=== PATIENT | female | born 1955 | race Caucasian/White ===

== ENCOUNTER 2017-05-31 08:18 | Outpatient (CLI) | payer OTHER ==
--- NOTE | 2017-06-08 10:11 | Mammography Report ---
DIGITAL SCREENING MAMMOGRAM: 05/31/2017 CLINICAL INDICATION: A 62-year-old, for screening. COMPARISON: The patient reports having had previous mammograms at an outside facility, but films are not yet available for comparison. If films become available, an addendum will be issued. TECHNIQUE: Routine CC and MLO projections were obtained of the breasts. FINDINGS: The breasts demonstrate scattered fibroglandular densities bilaterally. Coarse and punctat e, typically benign calcifications are present. Intramammary lymph nodes are present bilaterally. No suspicious masses, clustered microcalcifications, or regions of architectural distortion are identifi ed. IMPRESSION: BENIGN FINDINGS. RECOMMENDATION: ROUTINE ANNUAL SCREENING UNLESS OTHERWISE CLINICALLY INDICATED. BIRADS CATEGORY 2-BENIGN FINDINGS. STANDARD QUALIFYING STATEMENTS 1. This examination was reviewed with the aid of Computer-Aided Detection (CAD). 2. A negative or benign imaging report should not delay biopsy if clinically suspicious findings are present. Consider surgical consultation if warranted. More than 5% of cancers are not identified by i maging. 3. Dense breasts may obscure an underlying neoplasm. JOB #: [id number] EXT JOB #:[id number]
== END 2017-05-31 08:19 | disposition home or self-care (01) ==
LOC: DI 08:18
PROVIDERS: ATTEND Physician Assistant
DX: Z12.31 Encounter for screening mammogram for malignant neoplasm of breast (principal)
CPT/HCPCS: 77067

== ENCOUNTER 2017-11-06 09:10 | Outpatient (CLI) | payer OTHER | END 2017-11-06 09:11 | disposition home or self-care (01) | LOC: SC 09:10 | PROVIDERS: ATTEND Internal Medicine Pulmonary Disease | DX: G47.33 Obstructive sleep apnea (adult) (pediatric) (principal) | CPT/HCPCS: 99203; 99212 ==

== ENCOUNTER 2018-01-11 21:01 | Outpatient (CLI) | payer OTHER | END 2018-01-11 21:02 | disposition home or self-care (01) | LOC: SC 21:01 | PROVIDERS: ATTEND Internal Medicine Pulmonary Disease | DX: G47.61 Periodic limb movement disorder (principal) | CPT/HCPCS: 95810 ==

== ENCOUNTER 2018-02-08 09:12 | Outpatient (CLI) | payer OTHER | END 2018-02-08 09:13 | disposition home or self-care (01) | LOC: SC 09:12 | PROVIDERS: ATTEND Nurse Practitioner Family | DX: R06.83 Snoring (principal); G47.61 Periodic limb movement disorder | CPT/HCPCS: 99214 ==

== ENCOUNTER 2019-02-28 09:08 | Day surgery (SDC) | payer MEDICARE, OTHER ==
[~2019-02-28 09:08] MED LIST: CYCLOPENTOLATE 1% OPHTH DROPS 2 ML ONE; KETOROLAC 0.45% OPHTH DROPS ONE; PHENYLEPHRINE 2.5% OPHTH 2 ML DROPS ONE; PROPARACAINE 0.5% OPHTH DROPS 15 ML ONE
[2019-02-28] MEDS ORDERED: LACTATED RINGERS 500 ML IV ONE (09:27)
[2019-02-28] MEDS ORDERED: PROPARACAINE 0.5% OPHTH DROPS 15 ML RIGHTEYE ONE ×2 (09:36→10:17)
[2019-02-28] MEDS ORDERED: PHENYLEPHRINE 2.5% OPHTH 2 ML DROPS RIGHTEYE ONE (09:36)
[2019-02-28] MEDS ORDERED: CYCLOPENTOLATE 1% OPHTH DROPS 2 ML RIGHTEYE ONE (09:36)
[2019-02-28] MEDS ORDERED: KETOROLAC 0.45% OPHTH DROPS RIGHTEYE ONE (09:36)
--- NOTE | 2019-02-28 09:42 | ANESTHESIA ---
Pre-Anesthesia VS, & Labs - Diagnosis R senile combined cataract - Procedure R extraction cataract with IOL Vital Signs: Last Vital Signs Temp 36.9 C 02/28/19 09:28 Pulse 76 02/28/19 09:28 Resp 16 02/28/19 09:28 BP 151/90 H 02/28/19 09:28 Pulse Ox 97 02/28/19 09:28 - NPO >8 hours - Is Patient ?: No Home Medications and Allergies Home Medications: Ambulatory Orders Cholecalciferol (Vitamin D3) [Vitamin D3] 1,000 unit PO 02/27/19 Glucosamine HCl 1,500 mg PO 02/27/19 Metoprolol Succinate 50 mg PO 02/27/19 Omeprazole 20 mg PO 02/27/19 Simvastatin 20 mg PO 02/27/19 Ubidecarenone [Co Q-10] 10 mg PO 02/27/19 Cholecalciferol (Vitamin D3) [Vitamin D3] 1,000 unit PO 02/27/19 Glucosamine HCl 1,500 mg PO 02/27/19 Metoprolol Succinate 50 mg PO 02/27/19 Omeprazole 20 mg PO 02/27/19 Simvastatin 20 mg PO 02/27/19 Ubidecarenone [Co Q-10] 10 mg PO 02/27/19 Allergies/Adverse Reactions: Allergies Allergy/AdvReac Type Severity Reaction Status Date / Time No Known Drug Allergies Allergy Verified 02/27/19 14:24 Anes History & Medical History - Anesthetic History Anesthesia Complications: reports: No previous complications Family history of Anesthesia Complications: Denies Family history of Malignant Hyperthermia: Denies - Medical History Cardiovascular: reports: Hypertension, High cholesterol Pulmonary: reports: None Gastrointestinal: reports: GERD Urinary: reports: None Musculoskeletal: reports: None Endocrine/Autoimmune: reports: None Skin: reports: None Exam General: Alert, Oriented x3, Cooperative Dental: WNL Mouth Openin Fingerbreadth Neck Mobility: Normal Mallampati classification: II Thyromental Distance: 4-6 cm Respiratory: Lungs clear Cardiovascular: Regular rate Neurological: Normal speech Mental/Cognitive Status: Alert/Oriented X3, Normal for patient Cognitive Status: Within normal limits Plan Anesthesia Type: MAC Consent for Procedure(s) Verified and Reviewed: Yes Code Status: Attempt Resuscitation ASA classification: 2-Mild systemic disease Is this case an emergency?: No
[2019-02-28] MEDS ORDERED: BRIMONIDINE 0.2% OPHTH DROPS 5 ML OPTH ONE (10:16)
[2019-02-28] MEDS ORDERED: EPINEPHrine 1 MG/ML AMP IVP ONE (10:16)
[2019-02-28] MEDS ORDERED: TIMOLOL 0.5% OPHTH DROPS OPTH ONE (10:17)
[2019-02-28] MEDS ORDERED: CHONDR SULF/HYALURONATE SYRINGE IO ONE (10:17)
[2019-02-28] MEDS ORDERED: BSS/LIDOCAINE/EPINEPHRINE 1 ML SYRINGE IO ONE (10:17)
[2019-02-28] MEDS ORDERED: TRIAMCIN/MOXIFLOX OPHTHALMIC 0.6 ML VIAL IO ONE (10:18)
[2019-02-28] MEDS ORDERED: VANCOMYCIN OPHTHALMI 8MG/0.8ML 8 MG/0.8 ML SYRINGE IO ONE (10:18)
[2019-02-28 10:48] VITALS: BP 118/68
--- NOTE | 2019-02-28 11:34 | OPERATIVE REPORT ---
DATE OF SERVICE: 02/28/2019 Physician: Alonzo Ugalde MD PREOPERATIVE DIAGNOSIS: Visually significant cataract, right eye. This is her first cataract surger y. She also underwent a vitrectomy and retinal detachment repair earlier this year. POSTOPERATIVE DIAGNOSIS: Visually significant cataract, right eye. This is her first cataract surge ry. She also underwent a vitrectomy and retinal detachment repair earlier this year. PROCEDURE: Phacoemulsification with posterior chamber intraocular lens implant, right eye. SURGEON: Alonzo Ugalde MD ANESTHESIA: Monitored anesthesia care. COMPLICATIONS: None. OPERATIVE INDICATIONS: This is a 64-year-old woman with progressive vision loss in the right eye due to 4+ nuclear sclerotic and 1+ posterior subcapsular cataract. Best corrected visual acuity was 20/ 150, glaring to 20/400 in the right eye. Indications for surgery were overall decrease in vision, di fficulty seeing words on the computer screen, difficulty reading, difficulty seeing words, closed cap tion or game scores on TV, difficulty seeing street signs, difficulty driving in low light or at nigh t, difficulty driving at night because headlights from other vehicles, and difficulty with glare or b right lights in any situation. She was consented at length concerning risks and benefits of cataract surgery, after which she expressed a desire to proceed with surgery. OPERATIVE PROCEDURE: The patient was taken into OR #3 and placed under monitored anesthesia care. A surgical timeout was conducted confirming the correct patient, correct procedure, and correct surgic al site. She was given topical anesthesia, and prepped and draped in the usual sterile fashion. The eye was entered at the 12 and 9 o'clock positions. Intracameral Shugarcaine was injected into the a nterior chamber, followed by Viscoat. A continuous-tear curvilinear capsulorrhexis was performed. T he nucleus was hydrodissected and phacoemulsified. The cortex was evacuated using automated infusion and aspiration. Provisc was injected into the capsular bag, and a 17.0 diopter intraocular lens ins erted in the bag. Approximately 0.8 mL of a mixture of triamcinolone, moxifloxacin, and vancomycin w as injected subconjunctivally in the superior quadrant for infection and inflammation prophylaxis. I and A was used to evacuate the viscoelastic materials. The eye was inflated to physiologic pressure using balanced salt solution and found to be watertight. The patient was taken from the operating r oom in good condition and given postoperative instructions. TD: 02/28/2019 10:38
== END 2019-02-28 09:09 | disposition home or self-care (01) ==
LOC: SDS 09:08
PROVIDERS: ATTEND Ophthalmology
PROC: 08RJ3JZ Replacement of Right Lens with Synthetic Substitute, Percutaneous Approach (ICD-10-PCS; principal; 2019-02-28 08:30)
DX: H25.811 Combined forms of age-related cataract, right eye (principal); H35.81 Retinal edema; I10 Essential (primary) hypertension; G47.30 Sleep apnea, unspecified; E78.00 Pure hypercholesterolemia, unspecified; K21.9 Gastro-esophageal reflux disease without esophagitis; M19.90 Unspecified osteoarthritis, unspecified site; Z86.69 Personal history of other diseases of the nervous system and sense organs; Z87.891 Personal history of nicotine dependence
CPT/HCPCS: 66984; A9270; J3490; V2632

== ENCOUNTER 2019-04-22 11:27 | Outpatient (CLI) | payer MEDICARE, OTHER ==
--- NOTE | 2019-04-22 15:18 | XRAY Report ---
Reason: PAIN IN LEFT HIP Procedure Date: 04/22/2019 Accession Number: [id number] / [id number] Procedure: XR - Hip w/Pelvis 2-3V LT CPT Code: FULL RESULT: EXAM: LEFT HIP RADIOGRAPHY EXAM DATE: 04/22/2019 11:40 AM. CLINICAL HISTORY: Left hip pain. COMPARISON: None. TECHNIQUE: 2 views. FINDINGS: Bones: No acute fracture evident. A small sclerotic bone lesion overlies the inferior right ilium measuring 10 mm. The inferior portion of posterior spinal fusion hardware overlies the L5 level. Joints: No hip joint space loss or malalignment. Tiny periarticular osteophytes present about both hips. The sacroiliac joints and pubic symphysis are normal. Soft Tissues: Normal. No soft tissue swelling. IMPRESSION: 1. Mild bilateral hip osteoarthritis without joint space loss. 2. 10 mm sclerotic right ilial bone lesion, statistically likely a bone island. RADIA
== END 2019-04-22 11:28 | disposition home or self-care (01) ==
LOC: DI 11:27
PROVIDERS: ATTEND Physician Assistant
DX: M16.0 Bilateral primary osteoarthritis of hip (principal)

== ENCOUNTER 2019-04-22 22:45 | Outpatient (CLI) | payer MEDICARE, OTHER | END 2019-04-22 22:46 | disposition critical access hospital (66) | LOC: EMS 22:45 | PROVIDERS: ATTEND Surgery | DX: M54.5 Low back pain (principal); M25.552 Pain in left hip; R41.82 Altered mental status, unspecified; S09.90XA Unspecified injury of head, initial encounter; W10.8XXA Fall (on) (from) other stairs and steps, initial encounter; Y92.008 Other place in unspecified non-institutional (private) residence as the place of occurrence of the external cause | CPT/HCPCS: A0425; A0427 ==

== ENCOUNTER 2019-04-22 23:00 | Emergency (ER) | payer MEDICARE, OTHER ==
--- NOTE | 2019-04-23 00:07 | XRAY Report ---
Reason: fall, back injury, aloc Procedure Date: 04/22/2019 Accession Number: [id number] / [id number] Procedure: XR - Lumbar Spine 2 View CPT Code: FULL RESULT: EXAM: LUMBOSACRAL SPINE RADIOGRAPHY EXAM DATE: 04/22/2019 11:51 PM. CLINICAL HISTORY: Fall, back injury, aloc. COMPARISONS: None. TECHNIQUE: 3 views. FINDINGS: Alignment: Within normal limits. No spondylolisthesis or scoliosis. Bones: L4-L5 spinal fusion hardware. No hardware breaks or loosening. No acute displaced fractures. Disks: Mild to moderate multilevel degenerative disk disease. Facets: There are lower lumbar facet degenerative changes. Sacroiliac Joints: Unremarkable. Soft Tissues: The visualized bowel gas pattern is unremarkable. Atherosclerotic calcification of the aorta. IMPRESSION: No radiographic evidence for acute disease. RADIA
--- NOTE | 2019-04-23 00:13 | CT Report ---
Reason: fall, head injury, aloc Procedure Date: 04/22/2019 Accession Number: [id number] / [id number] Procedure: CT - HEAD WO CPT Code: FULL RESULT: EXAM: CT HEAD EXAM DATE: 04/22/2019 11:33 PM. CLINICAL HISTORY: Fall, head injury, decreased level of consciousness. COMPARISON: None. TECHNIQUE: Multiaxial CT images were obtained from the foramen magnum to the vertex. Reformats: Sagittal and coronal. IV contrast: None. In accordance with CT protocol optimization, one or more of the following dose reduction techniques were utilized for this exam: automated exposure control, adjustment of mA and/or KV based on patient size, or use of iterative reconstructive technique. FINDINGS: Parenchyma: No intraparenchymal hemorrhage. No evidence of mass, midline shift, or CT findings of infarction. Ray-white differentiation is distinct. Extraaxial Spaces: Normal for age. No subdural or epidural collections identified. Ventricles: Normal in size and position. Sinuses and Orbits: Imaged paranasal sinuses, orbits, and mastoids show no significant abnormality. Bones: No evidence of fracture or calvarial defect. Other: None. IMPRESSION: Normal head CT. RADIA
--- NOTE | 2019-04-23 00:21 | CT Report ---
Reason: fall, neck injury, aloc Procedure Date: 04/22/2019 Accession Number: [id number] / [id number] Procedure: CT - CERVICAL SPINE WO CPT Code: FULL RESULT: EXAM: CT CERVICAL SPINE WITHOUT CONTRAST DATE: 04/22/2019 11:33 PM. HISTORY: Fall, neck injury, altered level of consciousness. COMPARISONS: None. TECHNIQUE: Thin-section axial images were acquired of the cervical spine without contrast. Post-processing: Coronal and sagittal reformats. Other: None. In accordance with CT protocol optimization, one or more of the following dose reduction techniques were utilized for this exam: automated exposure control, adjustment of mA and/or KV based on patient size, or use of iterative reconstructive technique. FINDINGS: Alignment: Grade 1 anterolisthesis is present at C4-C5 and C5-C6 measuring 1 mm. No definite scoliosis is appreciated on coronal images. Bones: No acute cervical spine fracture is identified. Interspace Levels/Facets: C1-C2: Moderate degenerative changes are present anteriorly without craniocervical stenosis. C2-C3: Mild left facet arthropathy is present without spinal canal or foraminal stenosis. C3-C4: Mild bilateral facet arthropathy is present without spinal canal or foraminal stenosis. C4-C5: Mild bilateral facet arthropathy is present without spinal canal or foraminal stenosis. C5-C6: Mild disk height loss is present without spinal canal or foraminal stenosis. C6-C7: Moderate disk height loss is present with a posterior disk osteophyte complex resulting in mild spinal canal stenosis. There is mild bilateral foraminal narrowing, worse on the left. C7-T1: Right-sided facet arthropathy is present without spinal canal or foraminal stenosis. Musculature: There is mild diffuse fatty atrophy of the posterior paraspinal muscles. Other: No acute abnormality is seen in the remaining soft tissues of the neck. The lung apices are clear. IMPRESSION: No acute cervical spine fracture. RADIA
--- NOTE | 2019-04-23 00:21 | ED Physician Documentation ---
History of Present Illness - Stated complaint Stated Complaint: FALL/ETOH - Chief complaint Chief Complaint: Trauma Ch/Bk - History obtained from History obtained from: Patient, Family, EMS (backboard and c-collar) - History of Present Illness Timing: Today Pain level max: 5 Pain level now: 4 Improved by: rest Worsened by: movement - Additonal information Additional information: 64 year old female fell down 15 carpeted stairs head first tonight. unknown if LOC. + etoh. doesn't recall event. No numbness or tingling. no vomiting. has chronic low back pain. No loss of bowel or bladder control. Had low back pain initially. Also had neck pain initially. Review of Systems Unable to obtain: Intoxicated Constitutional: denies: Fever, Chills Respiratory: denies: Cough GI: denies: Vomiting, Diarrhea Skin: denies: Rash Neurologic: reports: Altered mental status (initially altered. back to normal now). denies: Focal weakness, Numbness, Difficulty speaking, Seizure PD PAST MEDICAL HISTORY - Past Medical History Past Medical History: Yes Cardiovascular: Hypertension, High cholesterol Respiratory: None Endocrine/Autoimmune: None GI: GERD [employer]ER: None : None HEENT: None Psych: None Musculoskeletal: None Derm: None - Past Surgical History Past Surgical History: Yes Ortho: Spine surgery - Present Medications Home Medications: Ambulatory Orders Medication Instructions Recorded Confirmed Glucosamine HCl 1,500 mg PO DAILY 02/27/19 04/22/19 Metoprolol Succinate 50 mg PO DAILY 02/27/19 04/22/19 Omeprazole 20 mg PO DAILY 02/27/19 04/22/19 Simvastatin 20 mg PO DAILY 02/27/19 04/22/19 - Allergies Allergies/Adverse Reactions: Allergies Allergy/AdvReac Type Severity Reaction Status Date / Time No Known Drug Allergies Allergy Verified 02/27/19 14:24 - Social History Does the pt smoke?: No Smoking Status: Former smoker Does the pt drink ETOH?: Yes Does the pt have substance abuse?: No - Immunizations Immunizations are current?: Yes - POLST Patient has POLST: No PD ED PE NORMAL - Vitals Vital signs reviewed: Yes - General General: Alert and oriented X 3, No acute distress, Well developed/nourished - HEENT HEENT: PERRL, Ears normal, Moist mucous membranes, Other (Abrasions to the forehead and nose. No facial bone tenderness. No swelling or deformity. No in traoral injuries. Bite is normal. No scalp hematomas or palpable skull fractures) - Neck Neck: Supple, no meningeal sign, Other (Minimal upper C-spine tenderness. No step-off or deformity) - Cardiac Cardiac: RRR, Strong equal pulses - Respiratory Respiratory: No respiratory distress, Clear bilaterally - Abdomen Abdomen: Soft, Non tender, Non distended - Back Back: Other (Mild paraspinal tenderness low lumbar. 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 2-12 intact, No motor deficit, No sensory deficit Eye Opening: Spontaneous Motor: Obeys Commands Verbal: Oriented GCS Score: 15 - Psych Psych: Normal mood, Normal affect Results - Vitals Vitals: Vital Signs - 24 hr 04/22/19 04/22/19 04/23/19 23:04 23:51 00:28 Temperature 36.1 C L Heart Rate 80 80 77 Respiratory 20 18 16 Rate Blood Pressure 144/84 H 118/69 135/77 H O2 Saturation 96 98 95 Oxygen O2 Source Room air - Rads (name of study) Head CT Radiology: Prelim report reviewed, EMP read contemporaneously, See rad report (No acute intracranial abnormality) Cervical spine CT Radiology: Prelim report reviewed, EMP read contemporaneously, See rad report (No acute abnormality) L spine xray Radiology: Prelim report reviewed, EMP read contemporaneously, See rad report (No acute abnormality) PD MEDICAL DECISION MAKING - ED course Complexity details: reviewed results, re-evaluated patient, considered differential, d/w patient, d/w family ED course: No acute findings on CT scan or x-ray. Ambulating without difficulty here. No neurological deficits. We will continue supportive care and follow-up with her doctor. Patient and family counseled regarding signs and symptoms for which I believe and urgent re-evaluation would be necessary. Patient with good understanding of and agreement to plan and is comfortable going home at this time This document was made in part using voice recognition software. While efforts are made to proofread this document, sound alike and grammatical errors may occur. Departure - Departure Disposition: 01 Home, Self Care Clinical Impression: Neck pain Closed head injury Qualifiers: Encounter type: initial encounter Qualified Code(s): S09.90XA - Unspecified injury of head, initial encounter Fall Qualifiers: Encounter type: initial encounter Qualified Code(s): W19.XXXA - Unspecified fall, initial encounter Low back pain Qualifiers: Chronicity: chronic Back pain laterality: bilateral Sciatica presence: without sciatica Qualified Code(s): M54.5 - Low back pain Condition: Good Instructions: ED Head Injury Closed Follow-Up: your,doctor as needed [Other] Comments: Thankfully your CT scans and x-rays are normal tonight. Return if you worsen. Use Motrin or Tylenol for pain. Discharge Date/Time: 04/23/19 00:42
[2019-04-23 00:29] VITALS: BP 135/77
== END 2019-04-23 00:42 | disposition home or self-care (01) ==
LOC: EDUNIT# → EDBD → ED 23:00
DX: S09.90XA Unspecified injury of head, initial encounter (principal); S00.81XA Abrasion of other part of head, initial encounter; S00.31XA Abrasion of nose, initial encounter; M54.2 Cervicalgia; W10.9XXA Fall (on) (from) unspecified stairs and steps, initial encounter; F10.920 Alcohol use, unspecified with intoxication, uncomplicated; M54.5 Low back pain; G89.29 Other chronic pain; M16.0 Bilateral primary osteoarthritis of hip; I10 Essential (primary) hypertension; Z87.891 Personal history of nicotine dependence
CPT/HCPCS: 70450; 72100; 72125; 99284

== ENCOUNTER 2019-05-08 07:35 | Outpatient (CLI) | payer MEDICARE, OTHER ==
--- NOTE | 2019-05-09 09:11 | Mammography Report ---
Reason: SCREENING MAMMO Procedure Date: 05/08/2019 Accession Number: [id number] / [id number] Procedure: NGOC - Screening Mammo w/Chet CPT Code: FULL RESULT: EXAM: Screening Mammo w/Chet DATE: 05/08/2019 9:00 AM CLINICAL HISTORY: Screening encounter. TECHNIQUE: (B) - Bilateral CC and MLO views were obtained. COMPARISON: 05/31/2017. PARENCHYMAL PATTERN: (A) - The breast(s) demonstrate(s) scattered fibroglandular densities. FINDINGS: There are no suspicious masses, calcifications, or areas of distortion. IMPRESSION: Negative examination. BI-RADS category 1. RECOMMENDATION: (ANNUAL) - Recommend routine annual screening mammography. BI-RADS CATEGORY: (1) - Negative. STANDARD QUALIFYING STATEMENTS: 1. This examination was not reviewed with the aid of Computer-Aided Detection (CAD). 2. A negative or benign imaging report should not preclude biopsy if clinically suspicious findings are present. 3. Dense breasts may obscure an underlying neoplasm. 4. This examination was reviewed with the aid of 3D breast imaging (tomosynthesis).
== END 2019-05-08 07:36 | disposition home or self-care (01) ==
LOC: DI 07:35
PROVIDERS: ATTEND Physician Assistant
DX: Z12.31 Encounter for screening mammogram for malignant neoplasm of breast (principal)
CPT/HCPCS: 77063; 77067

== ENCOUNTER 2019-05-08 07:35 | Outpatient (CLI) | payer MEDICARE, OTHER ==
--- NOTE | 2019-05-09 09:56 | DEXA Report ---
Reason: POSTMENOPAUSAL STATE Procedure Date: 05/08/2019 Accession Number: [id number] / [id number] Procedure: DEX - Dexa Spine and/or Hip CPT Code: FULL RESULT: EXAM: Dexa Spine and/or Hip, Dexa Forearm DATE: 05/08/2019 8:31 AM CLINICAL HISTORY: POSTMENOPAUSAL STATE TECHNIQUE: Dual energy x-ray absorptiometry (DXA) was performed on a [employer] System. Regions measured are the AP Spine, femoral neck, and if needed forearm. COMPARISON: None. In accordance with the International Society for Clinical Densitometry (ISCD) guidelines, data from previous exams may be reanalyzed using current recommendations and techniques. This is done to allow a more accurate basis for comparison with the current study. FINDINGS: The data for the hip is as follows: BMD (g/cm/cm) T-SCORE Z-SCORE REGION Neck 1.053 0.1 0.9 TOTAL 1.141 1.1 1.5 NOTE: The femoral neck or total proximal femur, whichever is lowest, is used for classification. The data for the left forearm is as follows: BMD (g/cm/cm) T-SCORE Z-SCORE REGION 1/3 0.937 0.7 2.1 NOTE: The 33% radius of the nondominant forearm is used for classification. IMPRESSION: THE WHO CLASSIFICATION BASED ON THE INTERNATIONAL REFERENCE STANDARD IS NORMAL. THE FRACTURE RISK IS NOT INCREASED. RECOMMENDATION: Patients with diagnosis of osteoporosis or osteopenia should have regular bone mineral density assessment. For those eligible for Medicare, routine testing is allowed once every 2 years. Testing frequency can be increased for patients who have rapidly progressing disease or for those who are receiving medical therapy to restore bone mass. COMMENT: World Health Organization (WHO) definitions for osteoporosis and osteopenia: NORMAL BMD: T-score at -1.0 or higher, fracture risk is low OSTEOPENIA BMD: T-score between -1.0 and -2.5, fracture risk is increased. OSTEOPOROSIS BMD: T-score at -2.5 or lower, fracture risk is high. National Osteoporosis Foundation recommends: 1. Obtain adequate dietary calcium (at least 1200 mg per day) and vitamin D (400-800 international units per day). 2. Participate, as appropriate, in regular weightbearing and muscle-strengthening exercise. 3. Avoid tobacco use and reduce alcohol and caffeine intake. 4. For more detailed information see the website at www.NOF.org.
--- NOTE | 2019-05-09 09:56 | DEXA Report ---
Reason: POSTMENOPAUSAL STATE Procedure Date: 05/08/2019 Accession Number: [id number] / [id number] Procedure: DEX - Dexa Forearm CPT Code: FULL RESULT: EXAM: Dexa Spine and/or Hip, Dexa Forearm DATE: 05/08/2019 8:31 AM CLINICAL HISTORY: POSTMENOPAUSAL STATE TECHNIQUE: Dual energy x-ray absorptiometry (DXA) was performed on a [employer] System. Regions measured are the AP Spine, femoral neck, and if needed forearm. COMPARISON: None. In accordance with the International Society for Clinical Densitometry (ISCD) guidelines, data from previous exams may be reanalyzed using current recommendations and techniques. This is done to allow a more accurate basis for comparison with the current study. FINDINGS: The data for the hip is as follows: BMD (g/cm/cm) T-SCORE Z-SCORE REGION Neck 1.053 0.1 0.9 TOTAL 1.141 1.1 1.5 NOTE: The femoral neck or total proximal femur, whichever is lowest, is used for classification. The data for the left forearm is as follows: BMD (g/cm/cm) T-SCORE Z-SCORE REGION 1/3 0.937 0.7 2.1 NOTE: The 33% radius of the nondominant forearm is used for classification. IMPRESSION: THE WHO CLASSIFICATION BASED ON THE INTERNATIONAL REFERENCE STANDARD IS NORMAL. THE FRACTURE RISK IS NOT INCREASED. RECOMMENDATION: Patients with diagnosis of osteoporosis or osteopenia should have regular bone mineral density assessment. For those eligible for Medicare, routine testing is allowed once every 2 years. Testing frequency can be increased for patients who have rapidly progressing disease or for those who are receiving medical therapy to restore bone mass. COMMENT: World Health Organization (WHO) definitions for osteoporosis and osteopenia: NORMAL BMD: T-score at -1.0 or higher, fracture risk is low OSTEOPENIA BMD: T-score between -1.0 and -2.5, fracture risk is increased. OSTEOPOROSIS BMD: T-score at -2.5 or lower, fracture risk is high. National Osteoporosis Foundation recommends: 1. Obtain adequate dietary calcium (at least 1200 mg per day) and vitamin D (400-800 international units per day). 2. Participate, as appropriate, in regular weightbearing and muscle-strengthening exercise. 3. Avoid tobacco use and reduce alcohol and caffeine intake. 4. For more detailed information see the website at www.NOF.org.
== END 2019-05-08 07:36 | disposition home or self-care (01) ==
LOC: DI 07:35
PROVIDERS: ATTEND Physician Assistant
DX: Z78.0 Asymptomatic menopausal state (principal)
CPT/HCPCS: 77080; 77081

== ENCOUNTER 2019-06-01 08:55 | Outpatient (CLI) | payer MEDICARE, OTHER ==
--- NOTE | 2019-06-02 12:26 | CT Report ---
Reason: SPINAL STENOSIS, LUMBAR REGION WITH NEUROGENIC CLA Procedure Date: 06/01/2019 Accession Number: [id number] / [id number] Procedure: CT - LUMBAR SPINE WO CPT Code: FULL RESULT: EXAM: CT LUMBAR SPINE WITHOUT CONTRAST EXAM DATE: 06/01/2019 09:07 AM. CLINICAL HISTORY: Spinal stenosis, lumbar region with neurogenic claudication. COMPARISONS: LUMBAR ROUTINE 05/07/2019 9:17 AM. TECHNIQUE: Thin-section axial images were acquired of the lumbar spine from T12 to S1 without contrast. Post-processing: Coronal and sagittal reformats. Other: None. In accordance with CT protocol optimization, one or more of the following dose reduction techniques were utilized for this exam: automated exposure control, adjustment of mA and/or KV based on patient size, or use of iterative reconstructive technique. FINDINGS: Alignment: 2 mm posterior subluxation L2 on L3 and L3 on L4. Slight lumbar curvature convex left. Bones: Five mzl-vhp-qxmtgjf lumbar vertebral bodies are present. Postsurgical changes of laminectomy at L4 and L5. Pedicle screws and stabilization rods at L4-L5. Solid osseous fusion of the L4-L5 posterior elements. Small bridging syndesmophytes at the L4-L5 disk space. Disk Levels/Facets: T12-L1: Minimal disk bulge and mild facet arthropathy. No stenosis. L1-L2: Mild annular disk bulge with small osteophytes and mild facet arthropathy. Mild canal stenosis. L2-L3: Annular disk bulge and mild to moderate degenerative facet arthropathy. Slight retrolisthesis. Mild central canal stenosis. No significant foraminal stenosis. L3-L4: Slight retrolisthesis. Annular disk bulge and moderate degenerative facet arthropathy with ligamentum flavum buckling. Severe central canal stenosis. Mild to moderate bilateral foraminal stenosis. L4-L5: Posterior decompression. No significant stenosis. L5-S1: Posterior decompression. No significant stenosis. Musculature: Fatty atrophy of the lower paraspinous musculature. Other: 7 x 5 mm stone in the lower right renal pelvis. IMPRESSION: 1. L3-L4 severe central canal stenosis and mild to moderate bilateral foraminal stenosis. 2. Postsurgical changes of posterior decompression, posterior and interbody fusion at L4-L5. 3. Right renal stone approximately 7 x 5 mm. RADIA
== END 2019-06-01 08:56 | disposition home or self-care (01) ==
LOC: DI 08:55
PROVIDERS: ATTEND Orthopaedic Surgery
DX: M47.816 Spondylosis without myelopathy or radiculopathy, lumbar region (principal); M43.16 Spondylolisthesis, lumbar region; Z98.1 Arthrodesis status; M48.061 Spinal stenosis, lumbar region without neurogenic claudication; M47.815 Spondylosis without myelopathy or radiculopathy, thoracolumbar region; N20.0 Calculus of kidney
CPT/HCPCS: 72131

== ENCOUNTER 2019-06-21 11:24 | Outpatient (CLI) | payer MEDICARE, OTHER ==
--- NOTE | 2019-06-22 23:21 | XRAY Report ---
Reason: PAIN OF RIGHT WRIST Procedure Date: 06/21/2019 Accession Number: [id number] / [id number] Procedure: XR - Wrist 2 View RT CPT Code: FULL RESULT: EXAM: RIGHT WRIST RADIOGRAPHY EXAM DATE: 06/21/2019 11:39 AM. CLINICAL HISTORY: PAIN OF RIGHT WRIST. Fall on 04/22/2019, still has pain. COMPARISON: None. TECHNIQUE: 2 views. FINDINGS: Bones: Horizontal lucency seen at the proximal metaphysis of the fourth metacarpal concerning for a fracture. A dedicated right hand x-ray could be obtained to further evaluate. Joints: Normal. No subluxations. Soft Tissues: Unremarkable. IMPRESSION: Horizontal lucency seen at the proximal metaphysis of the fourth metacarpal concerning for a fracture. A dedicated right hand x-ray could be obtained to further evaluate. RADIA
== END 2019-06-21 11:25 | disposition home or self-care (01) ==
LOC: DI 11:24
PROVIDERS: ATTEND Physician Assistant
DX: M25.531 Pain in right wrist (principal)

== ENCOUNTER 2019-06-23 10:57 | Emergency (ER) | payer MEDICARE, OTHER ==
[2019-06-23 11:06] VITALS: BP 140/83
--- NOTE | 2019-06-23 12:29 | ED Physician Documentation ---
PD HPI UPPER EXT INJURY - Stated complaint Stated Complaint: HAND PX - Chief complaint Chief Complaint: Ext Problem - History obtained from History obtained from: Patient - History of Present Illness Location: Right, Wrist, Hand Type of injury: Fall Where injury occurred: Home Timing - onset: How many months ago (2) Timing - duration: Months (2) Timing - details: Abrupt onset Pain level max: 7 Pain level now: 2 Improved by: Rest Worsened by: Moving. No: Palpating Associated symptoms: No: Weakness, Numbness, Tingling, Swelling Contributing factors: No: Anticoagulated Recently seen: Clinic (had a wrist xray on monday that showed a possible fracture. sent here for hand xray.) - Additonal information Additional information: Patient is right-handed. Worse with movement, better with rest. 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 : None HEENT: None Psych: None Musculoskeletal: None Derm: None - Past Surgical History Past Surgical History: Yes Ortho: Spine surgery - Present Medications Home Medications: Ambulatory Orders Medication Instructions Recorded Confirmed Glucosamine HCl 1,500 mg PO DAILY 02/27/19 04/22/19 Metoprolol Succinate 50 mg PO DAILY 02/27/19 04/22/19 Omeprazole 20 mg PO DAILY 02/27/19 04/22/19 Simvastatin 20 mg PO DAILY 02/27/19 04/22/19 - Allergies Allergies/Adverse Reactions: Allergies Allergy/AdvReac Type Severity Reaction Status Date / Time No Known Drug Allergies Allergy Verified 02/27/19 14:24 - Social History Does the pt smoke?: No Smoking Status: Never smoker Does the pt drink ETOH?: Yes Does the pt have substance abuse?: No - Immunizations Immunizations are current?: Yes - POLST Patient has POLST: No PD ED PE NORMAL - Vitals Vital signs reviewed: Yes - General General: Alert and oriented X 3, No acute distress - HEENT HEENT: Moist mucous membranes - Neck Neck: Supple, no meningeal sign - Derm Derm: Warm and dry - Extremities Extremities: Other (R hand and wrist. no TTP. No swelling. Pain with ROM over the volar aspect of the wrist. no snuffbox tenderness. ) - Neuro Neuro: Alert and oriented X 3 - Psych Psych: Normal mood, Normal affect Results - Vitals Vitals: Vital Signs - 24 hr 06/23/19 11:03 Temperature 36.3 C L Heart Rate 67 Respiratory 20 Rate Blood Pressure 140/83 H O2 Saturation 100 Oxygen O2 Source Room air - Rads (name of study) R hand xray Radiology: Prelim report reviewed, EMP read contemporaneously, See rad report (Minimally distracted intra-articular radial styloid fracture.) PD MEDICAL DECISION MAKING - ED course Complexity details: reviewed old records, reviewed results, re-evaluated patient, considered differential, d/w patient, d/w application development consultant ED course: 64-year-old female with what appears to be a minimally distracted right radial styloid fracture. This is 2 months old. Discussed case with orthopedics. Dr. Lee does not recommend splinting or immobilizing at this time. We will have her follow-up with her doctor and orthopedics for further care. Patient counseled regarding signs and symptoms for which I believe and urgent re-evaluation would be necessary. Patient with good understanding of and agreement to plan and is comfortable going home at this time This document was made in part using voice recognition software. While efforts are made to proofread this document, sound alike and grammatical errors may occur. Departure - Departure Disposition: 01 Home, Self Care Clinical Impression: Radial styloid fracture Qualifiers: Encounter type: initial encounter Fracture type: closed Fracture alignment: displaced Laterality: right Qualified Code(s): S52.511A - Displaced fracture of right radial styloid process, initial encounter for closed fracture Condition: Good Instructions: ED Fx Wrist General Follow-Up: Lavonne Pablo PA [Primary Care Provider] - Within 1 week [facility] [Provider Group] - Within 1 week Comments: It appears that you have an old radial styloid fracture. This is likely from a fall 2 months ago. This may be causing her continuing pain. I discussed the case with Dr. Lee, orthopedics on-call who recommended continuing to gently range the wrist and follow-up in clinic either with your primary care doctor or with orthopedics. Discharge Date/Time: 06/23/19 13:17
--- NOTE | 2019-06-23 12:38 | XRAY Report ---
Reason: r hand/wrist pain. Procedure Date: 06/23/2019 Accession Number: [id number] / [id number] Procedure: XR - Hand 3 View RT CPT Code: FULL RESULT: EXAM: RIGHT HAND RADIOGRAPHY EXAM DATE: 06/23/2019 11:21 AM. CLINICAL HISTORY: Right hand and wrist pain after falling down a flight of stairs in March. COMPARISON: WRIST 2 VIEW RT 06/21/2019 11:28 AM. TECHNIQUE: 3 views. FINDINGS: Bones: There is a minimally distracted intra-articular radial styloid fracture. Carpal bones intact. Previous x-ray described a possible lucency through fourth metacarpals, but appears intact on this exam. No additional fracture seen. Joints: Normal. No subluxations. Soft Tissues: Soft tissue swelling IMPRESSION: Minimally distracted intra-articular radial styloid fracture. RADIA
== END 2019-06-23 13:17 | disposition home or self-care (01) ==
LOC: ED 10:57
DX: S52.511A Displaced fracture of right radial styloid process, initial encounter for closed fracture (principal); W19.XXXA Unspecified fall, initial encounter; I10 Essential (primary) hypertension
CPT/HCPCS: 99282; 99283

== ENCOUNTER 2022-03-10 10:08 | Outpatient (CLI) | payer MEDICARE, OTHER ==
--- NOTE | 2022-03-11 08:50 | Mammography Report ---
BILATERAL DIGITAL SCREENING MAMMOGRAM 3D/2D: 03/10/2022 CLINICAL: Routine screening. Comparison is made to exams dated: 05/08/2019 mammogram and 05/31/2017 mammogram - [facility]. There are scattered fibroglandular elements in both breasts. No significant masses, calcifications, or other findings are seen in either breast. There has been no significant interval change. IMPRESSION: NEGATIVE There is no mammographic evidence of malignancy. A 1 year screening mammogram is recommended. This exam was interpreted at Station ID: [id number]. NOTE: For mammograms, a report in lay terms will be sent to the patient. Approximately 15% of breast malignancies will not be visualized mammographically. In the management of a palpable breast mass, a negative mammogram must not discourage biopsy of a clinically suspicious lesion. Electronically Signed By: Jaylon Velasquez M.D. slc/penrad:03/10/2022 13:44:16 ACR BI-RADS Category 1: Negative 3341F PARENCHYMAL PATTERN: (A) - The breast(s) demonstrate(s) scattered fibroglandular densities. BI-RADS CATEGORY: (1) - 1 RECOMMENDATION: (ANNUAL) - Recommend routine annual screening mammography. [id number] 1 year screening LATERALITY: (B)
== END 2022-03-10 10:09 | disposition home or self-care (01) ==
LOC: DI 10:08
PROVIDERS: ATTEND Nurse Practitioner Family
DX: Z12.31 Encounter for screening mammogram for malignant neoplasm of breast (principal)

== ENCOUNTER 2022-06-06 08:01 | Emergency (ER) | payer MEDICARE, OTHER ==
--- NOTE | 2022-06-06 08:26 | ED Physician Documentation ---
PD HPI BACK PAIN - Stated complaint Stated Complaint: BACK PX - Chief complaint Chief Complaint: Abd Pain - History obtained from History obtained from: Patient - History of Present Illness Timing - onset: How many days ago (3) Timing - duration: Days (3) Timing - details: Abrupt onset, Waxing and waning Location: Mid, Right Quality: Pain, Sharp. No: Spasm Associated symptoms: No: Fever, Weakness, Numbness, Incontinent of urine Improves with: No: Rest Worsened by: No: Movement, Twisting Contributing factors: No: Lifting, Twisting, Trauma Similar symptoms before: Has not had sx before (has had back arthritis in the past and thought it that initially) Recently seen: Not recently seen Review of Systems Constitutional: denies: Fever, Chills Nose: denies: Rhinorrhea / runny nose, Congestion Throat: denies: Sore throat Respiratory: denies: Cough GI: reports: Nausea, Vomiting. 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 : None HEENT: None Psych: None Musculoskeletal: None Derm: None - Past Surgical History Past Surgical History: Yes Ortho: Spine surgery - Present Medications Home Medications: Ambulatory Orders Medication Instructions Recorded Confirmed Metoprolol Succinate 50 mg PO DAILY 02/27/19 04/22/19 Omeprazole 20 mg PO DAILY 02/27/19 04/22/19 Simvastatin 20 mg PO DAILY 02/27/19 04/22/19 glucosamine HCL [Glucosamine HCl] 1,500 mg PO DAILY 02/27/19 04/22/19 Ondansetron Odt [Zofran] 4 mg TL Q6H PRN #20 tablet 06/06/22 Tamsulosin [Flomax] 0.4 mg PO DAILY #10 cap 06/06/22 dexAMETHasone [Decadron] 4 mg PO DAILY #5 tablet 06/06/22 oxyCODONE [Roxicodone] 5 mg PO Q4H PRN #25 tablet 06/06/22 - Allergies Allergies/Adverse Reactions: Allergies Allergy/AdvReac Type Severity Reaction Status Date / Time No Known Drug Allergies Allergy Verified 02/27/19 14:24 - Social History Does the pt smoke?: No Smoking Status: Never smoker Does the pt drink ETOH?: Yes Does the pt have substance abuse?: No - Immunizations Immunizations are current?: Yes - POLST Patient has POLST: No PD ED PE NORMAL - Vitals Vital signs reviewed: Yes - General General: Alert and oriented X 3, Well developed/nourished, Other (appears in significant pain.) - Neck Neck: Supple, no meningeal sign, No adenopathy - Cardiac Cardiac: RRR, No murmur - Respiratory Respiratory: Clear bilaterally - Abdomen Abdomen: Normal bowel sounds, Soft, Non tender, Non distended - Rectal Rectal: Deferred - Back Back: Other (right CVA tender) - Derm Derm: Normal color, Warm and dry, No rash - Neuro Neuro: Alert and oriented X 3, No motor deficit, No sensory deficit, Normal speech, Other (normal patellar reflexes. ) Results - Vitals Vitals: Vital Signs - 24 hr 06/06/22 10:20 Heart Rate 74 Respiratory 16 Rate Blood Pressure 106/51 L O2 Saturation 96 Oxygen O2 Source Room air - Labs Labs: Laboratory Tests 06/06/22 06/06/22 06/06/22 09:06 09:06 09:35 WBC 13.2 H RBC 4.18 L Hgb 12.8 Hct 36.7 L MCV 87.8 MCH 30.6 MCHC 34.9 RDW 12.5 Plt Count 168 MPV 11.1 H Neut # (Auto) 11.9 H Lymph # (Auto) 0.3 L [place] # (Auto) 0.9 Eos # (Auto) 0.0 Baso # (Auto) 0.0 Absolute Nucleated RBC 0.00 Nucleated RBC % 0.0 Sodium 137 Potassium 3.5 Chloride 102 Carbon Dioxide 21 Anion Gap 14.0 H BUN 21 H Creatinine 0.9 Estimated GFR (MDRD) 62 L Glucose 148 H Calcium 9.1 Total Bilirubin 1.5 H AST 23 ALT 28 Alkaline Phosphatase 76 Total Protein 7.5 Albumin 3.6 Globulin 3.9 Albumin/Globulin Ratio 0.9 L Lipase 22 Urine Color YELLOW Urine Clarity SL. CLOUDY Urine pH 6.0 Ur Specific [place] 1.020 Urine Protein TRACE Urine Glucose (UA) NEGATIVE Urine Ketones >=80 H Urine Occult Blood MODERATE H Urine Nitrite NEGATIVE Urine Bilirubin NEGATIVE Urine Urobilinogen 2 H Ur Leukocyte Esterase SMALL H Urine RBC 6-10 H Urine WBC >25 H Ur Squamous Epith Cells MOD Squamous H Urine Bacteria Few Ur Microscopic Review INDICATED Urine Culture Comments NOT INDICATED - Rads (name of study) abd/pelvic CT Radiology: Prelim report reviewed (moderate right hydropnephrosis due to mid ureteral 7 x 14 mm elongated stone. ), See rad report PD MEDICAL DECISION MAKING - ED course Complexity details: reviewed results (7 mm wide stone but 2/3 down uteter. She is having minimal pain on recheck with meds. ), d/w patient Departure - Departure Disposition: 01 Home, Self Care Clinical Impression: Ureterolithiasis Back pain Qualifiers: Back pain location: low back pain Chronicity: acute Back pain laterality: unspecified Sciatica presence: without sciatica Qualified Code(s): M54.50 - Low back pain, unspecified Condition: Stable Record reviewed to determine appropriate education?: Yes Instructions: ED Stone Renal W Colic Follow-Up: Carla Hernandez ARNP [Primary Care Provider] - Angelika Alcaraz MD [Provider Admit Priv/Credential] - Prescriptions: dexAMETHasone [Decadron] 4 mg PO DAILY #5 tablet Tamsulosin [Flomax] 0.4 mg PO DAILY #10 cap oxyCODONE [Roxicodone] 5 mg PO Q4H PRN #25 tablet PRN Reason: Pain Ondansetron Odt [Zofran] 4 mg TL Q6H PRN #20 tablet PRN Reason: Nausea / Vomiting Comments: You are passing a kidney stone. It is made its way 2/3-3/[address] the ureter. It is a moderately large stone but of the passable size (as shown by making much of the way already). There is some swelling of the kidney which wou ld be caused by back pressure reading of the urine flow. Symptom relief is targeted at pain medication but also improving urine flow around the stone. This is a attempted with tamsulosin to decrease ureteral spasm and Decadron anti-inflammatory to decrease inflammation in the ureter. Ondansetron every 4-6 hours if needed for nausea. Tylenol 650 mg 4 times daily regularly for the next several days to week. To that add oxycodone every 4-6 hours if needed for pain. I provided the name of the urology group in [facility]. You do not need to see the spicified provider but with any in the group next available. Call their office to make a follow-up appointment regarding the stone. Typically the urologist will give more time to see if the stone passes as long as symptoms are reasonably controlled. Return to the ER if severe symptoms again despite the above medicines. I transmitted your prescriptions to the [facility] pharmacy here in [place]. I am prescribing a short course of narcotic pain medication for you. These are potentially dangerous and addictive medications that should be used carefully. These medications may constipate you. Take an siij-byt-xrgntbx stool softener such as docusate twice daily with plenty of water while taking these medications. If you go 24 hours without a bowel movement, take jjcr-ows-zikwmeh MiraLAX, per package instructions. Do not drink or drive while taking these medications. If you received narcotic or sedating medications while in the emergency department do not drive for 24 hours. Store this medication in a safe, secure place and out of reach of children. It is a violation of federal law to give or sell this medication to another person or to use in a manner other than prescribed. The ED will not refill narcotic prescriptions, including prescriptions lost or stolen. You can dispose of unwanted medications at the [facility]'s office or at several pharmacies such as [facility]. Discharge Date/Time: 06/06/22 11:13
[2022-06-06] MEDS ORDERED: KETOROLAC 15 MG/ML VIAL IVP STA (08:51)
[2022-06-06] MEDS ORDERED: HYDROmorphone 1 MG/ML CARPUJECT IVP STA (08:51)
[2022-06-06] MEDS ORDERED: ONDANSETRON 4 MG/2 ML VIAL IVP STA (08:51)
[2022-06-06 09:11] LABS: BASOPHILS % (AUTO) 0.2 %; HCT - HEMATOCRIT 36.7 % (37.0-47.0); HGB - HEMOGLOBIN 12.8 g/dL (12.0-16.0); LYMPHOCYTES # (AUTO) 0.3 10^3/uL (1.5-3.5); LYMPHOCYTES % (AUTO) 2.3 %; MEAN CORPUSCULAR HEMOGLOBIN 30.6 pg (27.0-31.0); MEAN CORPUSCULAR HGB CONC 34.9 g/dL (32.0-36.0); MEAN CORPUSCULAR VOLUME 87.8 fL (81.0-99.0); MEAN PLATELET VOLUME 11.1 fL (7.9-10.8); MONOCYTES # (AUTO) 0.9 10^3/uL (0.0-1.0); NEUTROPHILS # (AUTO) 11.9 10^3/uL (1.5-6.6); NEUTROPHILS % (AUTO) 89.7 %; PLT - PLATELET COUNT 168 10^3/uL (130-450); RED BLOOD COUNT 4.18 10^6/uL (4.20-5.40); RED CELL DISTRIBUTION WIDTH 12.5 % (12.0-15.0); WHITE BLOOD COUNT 13.2 x10^3/uL (4.8-10.8)
[2022-06-06 09:25] LABS: ALBUMIN 3.6 g/dL (3.2-5.5); ALBUMIN/GLOBULIN RATIO 0.9 (1.0-2.2); BILIRUBIN,TOTAL 1.5 mg/dL (0.2-1.0); CALCIUM 9.1 mg/dL (8.5-10.3); CREATININE 0.9 mg/dL (0.4-1.0); POTASSIUM 3.5 mmol/L (3.5-5.0); TOTAL PROTEIN 7.5 g/dL (6.7-8.2)
[2022-06-06 09:48] LABS: CLARITY,URINE SL. CLOUDY (CLEAR); GLUCOSE, URINE (UA) NEGATIVE (NEGATIVE); KETONES,URINE (UA) >=80 mg/dL (NEGATIVE); LEUKOCYTE ESTERASE, URINE SMALL (NEGATIVE); NITRITE,URINE NEGATIVE (NEGATIVE); OCCULT BLOOD,URINE MODERATE (NEGATIVE); PROTEIN,URINE TRACE mg/dL (NEGATIVE); UROBILINOGEN,URINE 2 E.U./dL (NORMAL)
[2022-06-06 09:54] LABS: BILIRUBIN,URINE NEGATIVE (NEGATIVE); ICTOTEST,URINE NEGATIVE
[2022-06-06 10:07] LABS: WBC,URINE >25 /HPF (0-5)
[2022-06-06 10:08] LABS: BACTERIA,URINE Few /HPF (None Seen); SQUAMOUS EPITHELIAL CELL,UR MOD Squamous (<= Few)
[2022-06-06 10:23] VITALS: BP 106/51
[2022-06-06] MEDS ORDERED: TAMSULOSIN 0.4 MG CAPSULE PO STA (10:24)
[2022-06-06] MEDS ORDERED: DEXAMETHASONE 10 MG/ML VIAL IVP STA (10:24)
[2022-06-06] MEDS ORDERED: ONDANSETRON ODT 4 MG TABLET TL STA (10:49)
[2022-06-06] MEDS ORDERED: CHERRY SYRUP 10 ML UDC PO ONE ×2 (10:50→10:58)
[2022-06-06] MEDS ORDERED: DEXAMETHASONE 10 MG/ML VIAL PO STA (10:50)
--- NOTE | 2022-06-06 10:54 | CT Report ---
PROCEDURE: Abdomen/Pelvis WO INDICATIONS: back/flank pain with vomiting several days TECHNIQUE: Noncontrast 5 mm thick sections acquired from the diaphragms to the symphysis. 5 mm coronal and sagi ttal reformats were then performed. For radiation dose reduction, the following was used: automated exposure control, adjustment of mA and/or kV according to patient size. COMPARISON: None. FINDINGS: Image quality: Excellent. ABDOMEN: Lung bases: Lung bases are clear. Heart size is normal. Small hiatal hernia. Solid organs: Liver and spleen are normal in size. Gallbladder demonstrates normal wall thickness a nd morphology of phrygian cap. Pancreas is normal in contours. No adrenal nodules. Moderate right hydronephrosis with right perinephric inflammation. Significant right hydroureter. The re is an elongated obstructing stone in the right distal ureter measuring 1.4 cm in length and 7 mm i n width. No left-sided calcifications. Peritoneum and bowel: There is mild diverticular disease throughout the colon. Normal stomach and sm all bowel loops. Normal appendix seen. No free fluid or free air. Nodes and vessels: There are a few borderline retroperitoneal lymph nodes. No retroperitoneal or mes enteric adenopathy by size criteria. Aorta and inferior vena cava are normal in caliber. Moderate c alcific atherosclerosis. Miscellaneous: No ventral hernias. PELVIS: Genitourinary: Bladder wall thickness is normal. No bladder stones. Normal uterus and ovarian tissu e. Miscellaneous: No inguinal hernias or adenopathy. Bones: Surgical changes of lumbar fusion from L3 through L5. No suspicious bone lesions. No suspicio us bony lesions. No vertebral body compression fractures. IMPRESSION: 1. Moderate right hydronephrosis and perinephric inflammation secondary to an elongated 1.4 cm right distal ureteral stone. 2. Colonic diverticulosis without acute diverticulitis. 3. Small hiatal hernia. Reviewed by: Uzma Thomas MD on 06/06/2022 10:53 AM PDT Approved by: Uzma Thomas MD on 06/06/2022 10:53 AM PDT Station ID: [id number]
== END 2022-06-06 11:13 | disposition home or self-care (01) ==
LOC: ED 08:01
DX: N20.1 Calculus of ureter (principal); I10 Essential (primary) hypertension
CPT/HCPCS: 36415; 74176; 80053; 81001; 83690; 85025; 96374; 96375; 99284; A9270; J1170; Q0162; 81003; 87086

== ENCOUNTER 2023-08-09 10:03 | Outpatient (CLI) | payer MEDICARE, OTHER ==
--- NOTE | 2023-08-09 13:30 | XRAY Report ---
PROCEDURE: Shoulder 3 View LT INDICATIONS: PAIN OF LEFT SHOULDER JOINT TECHNIQUE: 3 views of the shoulder were acquired. COMPARISON: None FINDINGS: Bones: No fractures or dislocations. No suspicious bony lesions. Visualized ribs appear intact. Soft tissues: No suspicious soft tissue calcifications. IMPRESSION: Unremarkable shoulder radiographs Reviewed by: Dk Aguilar MD on 08/09/2023 12:28 PM [place] Approved by: Dk Aguilar MD on 08/09/2023 12:28 PM [facility] Station ID: [id number]
== END 2023-08-09 10:04 | disposition home or self-care (01) ==
LOC: DI.S 10:03
PROVIDERS: ATTEND Nurse Practitioner Family
DX: M25.512 Pain in left shoulder (principal)

== ENCOUNTER 2024-02-27 08:15 | Outpatient (CLI) | payer MEDICARE, OTHER ==
--- NOTE | 2024-02-27 11:09 | XRAY Report ---
PROCEDURE: Abdomen 1 V INDICATIONS: KIDNEY STONES TECHNIQUE: One view of the abdomen acquired. COMPARISON: CT abdomen pelvis 06/06/2022 FINDINGS: Surgical changes and devices: Lower lumbar fusion. Hardware is intact without evidence of hardware fr acture or periprosthetic lucency to suggest loosening. Bowel: Bowel gas pattern is normal. Soft tissues: No suspicious abdominal calcifications. No definitive calcifications are identified o verlying the renal shadows or the expected course of the ureters. However, it is also noted significa nt colonic stool is present overlying the renal shadows. Visualized solid organ contours appear steven l in size. Bones: No suspicious bony lesions. IMPRESSION: No calcifications are identified overlying the renal shadows, although visualization is limited as de scribed above. Reviewed by: Jessica Haddad MD on 02/27/2024 11:08 AM PDT Approved by: Jessica Haddad MD on 02/27/2024 11:08 AM PDT Station ID: [id number]
== END 2024-02-27 08:16 | disposition home or self-care (01) ==
LOC: DI 08:15
PROVIDERS: ATTEND Urology
DX: N20.0 Calculus of kidney (principal)